=== PATIENT | female | born 1960 | race Caucasian/White ===

== ENCOUNTER 2018-07-21 05:50 | Day surgery (SDC) | payer OTHER, MEDICARE, MEDICAID ==
[~2018-07-21] VITALS: Ht 154.9 cm; Wt 53.6 kg
[2018-07-21] MEDS ORDERED: LIDOCAINE/PF 2% 5 ML VIAL IM ONE (05:51)
[2018-07-21] MEDS ORDERED: NEOSTIGMINE METHYLSULFATE 1 MG/ML 10 ML VIAL IVP ONE (05:51)
[2018-07-21] MEDS ORDERED: METOCLOPRAMIDE HCL 5 MG/ML 2 ML VIAL IVP ONE (05:51)
[2018-07-21] MEDS ORDERED: PROPOFOL 1% 20 ML VIAL IVP ONE (05:51)
[2018-07-21] MEDS ORDERED: DEXAMETHASONE SOD PHOS 4 MG/ML VIAL IVP ONE (05:51)
[2018-07-21] MEDS ORDERED: ROCURONIUM BROMIDE 10 MG/ML 5 ML VIAL IVP ONE (05:51)
[2018-07-21] MEDS ORDERED: RINGERS SOLUTION,LACTATED 1,000 ML IV ONE ×2 (07:00→09:29)
[2018-07-21] MEDS ORDERED: AMPICILLIN SODIUM 1 GM/VIAL ONE (09:51)
[2018-07-21] MEDS ORDERED: SUGAMMADEX SODIUM 200 MG/2 ML VIAL IVP ONE (11:13)
[2018-07-21] MEDS ORDERED: MEPERIDINE-PF 25 MG/ML VIAL IVP PRN (11:30)
[2018-07-21] MEDS ORDERED: FentaNYL CITRATE-PF 100 MCG/2 ML VIAL IVP PRN (11:30)
[2018-07-21] MEDS ORDERED: HYDROmorphone 2 MG/ML SYRINGE IVP PRN (11:30)
[2018-07-21] MEDS ORDERED: OXYGEN THERAPY IH SCH (20:00)
== END 2018-07-21 13:20 | disposition home or self-care (01) ==
LOC: SURGERY 05:50
PROVIDERS: ATTEND Dentist General Practice
DX: K05.30 Chronic periodontitis, unspecified (principal); K03.6 Deposits [accretions] on teeth; G80.9 Cerebral palsy, unspecified; G40.909 Epilepsy, unspecified, not intractable, without status epilepticus; I10 Essential (primary) hypertension; Z88.8 Allergy status to other drugs, medicaments and biological substances
CPT/HCPCS: 41899; J0290; J1100; J2704; J2765; J3490 ×2; J7120